=== PATIENT | female | born 1995 | race African-American/Black ===

== ENCOUNTER 2022-07-01 03:47 | Emergency (ER) | payer MEDICAID, OTHER ==
[~2022-07-01] VITALS: Ht 160 cm; Wt 68.1 kg
[2022-07-01 03:58] VITALS: BP 164/84
[2022-07-01 05:59] LABS: BASOPHILS % 0.3 % (0.0-2.0); EOSINOPHILS % 0.1 % (0.0-5.0); HEMATOCRIT. 36.8 % (36.0-48.0); HEMOGLOBIN. 12.3 g/dL (12.0-16.0); LYMPHOCYTES % 13.2 % (20.0-50.0); MEAN CORPUSCULAR HEMOGLOBIN 28.3 pg (28.0-32.0); MEAN CORPUSCULAR VOLUME 84.4 fL (81.0-99.0); MEAN PLATELET VOLUME 8.7 fl (7.4-10.4); NEUTROPHILS % 82.4 % (40.0-76.0); PLATELET 253 x1000/uL (130-400); RED BLOOD CELL COUNT 4.36 mill/uL (4.2-5.4); RED CELL DISTRIBUTION WIDTH 12.7 % (11.6-14.6)
[2022-07-01 06:07] LABS: CHLORIDE 104 mEq/L (98-107)
[2022-07-01 06:08] LABS: PROTHROMBIN TIME 11.1 sec (9.6-11.0)
[2022-07-01 06:44] LABS: CLARITY URINE CLEAR (CLEAR); COLOR URINE DARK YELLOW (YELLOW); KETONES URINE 4+ (NEGATIVE); LEUKOCYTE ESTERASE URINE TRACE (NEGATIVE); NITRITE URINE NEGATIVE (NEGATIVE); OCCULT BLOOD URINE 2+ (NEGATIVE); PH URINE 5.5 (4.5-8.0); PROTEIN URINE 1+ (NEGATIVE); SPECIFIC GRAVITY URINE 1.032 (1.005-1.030)
[2022-07-01 06:48] LABS: HCG SCREEN NEGATIVE
[2022-07-01] MEDS ORDERED: ONDANSETRON HCL 4MG/2ML INJ IV ONE ×2 (08:00→09:45)
[2022-07-01] MEDS ORDERED: MORPHINE SULFATE 4 MG/ML CPJ (NOT FOR IM USE) IV ONE (08:00)
[2022-07-01] MEDS ORDERED: T3 PO (10:33)
[2022-07-01] MEDS ORDERED: METO-293 PO (10:39)
== END 2022-07-01 11:07 | disposition home or self-care (01) ==
LOC: ER 03:47
DX: K80.20 Calculus of gallbladder without cholecystitis without obstruction (principal); E11.43 Type 2 diabetes mellitus with diabetic autonomic (poly)neuropathy; K31.84 Gastroparesis
CPT/HCPCS: 36415; 71045; 74176; 76705; 80053; 81003; 82962; 83690; 84703; 85025; 85610; 93005; 96374; 96375; 96376; 99285; J2270; J2405; Z7610

== ENCOUNTER 2025-02-12 18:42 | Emergency (ER) | payer MEDICAID, OTHER ==
[~2025-02-12] VITALS: Ht 170.2 cm; Wt 85.0 kg
[~2025-02-12 18:42] MED LIST: INSLIS SUBCUT; METO-293 PO; T3 PO
[2025-02-12 18:43] VITALS: O2SAT 99
[2025-02-12 19:18] LABS: BASOPHILS % 0.3 % (0.0-2.0); EOSINOPHILS % 0.1 % (0.0-5.0); HEMATOCRIT. 34.4 % (36.0-48.0); HEMOGLOBIN. 11.4 g/dL (12.0-16.0); LYMPHOCYTES % 12.0 % (20.0-50.0); MEAN PLATELET VOLUME 8.9 fl (7.4-10.4); MONOCYTES % 4.8 % (2.0-8.0); NEUTROPHILS % 82.8 % (40.0-76.0); PLATELET 240 x1000/uL (130-400); RED BLOOD CELL COUNT 4.01 mill/uL (4.2-5.4); RED CELL DISTRIBUTION WIDTH 13.1 % (11.6-14.6)
[2025-02-12 19:32] LABS: CREATININE 0.8 mg/dL (0.6-1.0)
[2025-02-12 19:33] LABS: UREA NITROGEN BLOOD < 5 mg/dL (9-23)
[2025-02-12 19:34] LABS: ASPARTATE AMINOTRANSFERASE 16 IU/L (<34)
[2025-02-12 19:35] LABS: BILIRUBIN DIRECT 0.1 mg/dL (<=3.0); BILIRUBIN TOTAL 0.5 mg/dL (0.1-1.0); PROTEIN TOTAL 7.3 g/dL (6.0-8.3); TROPONIN I HIGH SENSITIVITY < 4 ng/L (3.0-34)
[2025-02-12 19:37] LABS: HCG SCREEN NEGATIVE
[2025-02-12] MEDS: FAMOTIDINE 20MG/2ML VIAL IV ONE (19:52)
[2025-02-12] MEDS: METOCLOPRAMIDE HCL 10MG/2ML VIAL IV ONE ×2 (19:53→21:13)
[2025-02-12] MEDS: SODIUM CHLORIDE 0.9% 1,000 ML IV ONE (19:53)
[2025-02-12] MEDS: KETOROLAC 30MG/ML VIAL IV SCH (20:35)
[2025-02-12] MEDS ORDERED: METO-293 MT (22:04)
[2025-02-12 22:31] VITALS: BP 144/82; PULSE 74; RESP 16; TEMP 36.6; O2SAT 99
== END 2025-02-12 22:34 | disposition home or self-care (01) ==
LOC: ER 18:42
DX: K31.84 Gastroparesis (principal); I10 Essential (primary) hypertension; E11.9 Type 2 diabetes mellitus without complications; Z98.890 Other specified postprocedural states; Z79.899 Other long term (current) drug therapy
CPT/HCPCS: 80076; 80048; 81025; 82010; 80320; 82962; 84703; 83690; 85025; 84484; 36415; 96361; 96374; 96375; 99284; J1308; J1885; J2765; J7030; Z7610; G0480